=== PATIENT | male | born 1970 | race African-American/Black ===

== ENCOUNTER 2021-03-16 21:24 | Inpatient (IN) | payer OTHER ==
[~2021-03-16] VITALS: Ht 165.1 cm; Wt 106.1 kg
--- NOTE | ~2021-03-16 | EMS ---
[address] [address] EMS Patient Care Report Name: ANTHONY FORREST Room #: REG RONALD Carmichael#: [id number] Admission: 03/16/21 Attend Phys: Discharge: Date of : 70 Report #: [id number] THIS REPORT FOR: //name// Report Transmitted: 03/16/2021 21:14 EMS Care Summary [place], [place]/[facility] Incident [id number] @ 03/16/2021 20:44 Incident Location [address] [place] [address] Patient ANTHONY FORREST Male, 50 Years 1970 Patient Address [address] [place] [address] Patient History Congestive Heart Failure (CHF),Hypertension (HTN),Stroke/CVA,Hyperlipidemia,Gout, Patient Allergies No known allergies,Other drug allergy, Patient Medications Warfarin, Lisinopril, Allopurinol, Lasix, Eliquis, Chief Complaint Hurt all over, gout Disposition Transported No Lights/[place] Reason Sick Person Transported To [facility] Narrative Called for a sick. Upon arrival, P41 on the scene. Pt was BOYLE x 3 lying on his bed with a strong odor urine present. Pt said he has gout and is having a flare up that started sometime on Sunday. Pain mainly in his feet. He [facility] [address] [place] [address] EMS Patient Care Report Name: ANTHONY FORREST Room #: REG [facility].#: [id number] Admission: 03/16/21 Attend Phys: Discharge: Date of : 70 Report #: [id number] requests transport to [facility] for further eval & tx. Pt moved to the EMS cot via a Isaak-electrical maintenance engineer and loaded into the ambulance all w/o incident. Vitals obtained. Attempt IV. Vitals repeated. En route: no changes. RR to the ER. Arrived: pt taken to ER #3 and moved to their bed w/o incident. Pt care & report to ER staff. Initial Vitals @21:04P: 102,R: 16,BP: 152/102,Pain: 6/10,GCS: 15,SpO2: 96,Revised Trauma: 12, @21:00P: 109,R: 16,BP: 148/90,Pain: 6/10,GCS: 15,SpO2: 95,Revised Trauma: 12, Assessments @20:57MENTAL:Event Oriented,Person Oriented,Place Oriented,Time Oriented,SKIN:HEENT:LUNG SOUNDS:ABDOMEN:PELVIS//GI:EXTREMITIES:Right Leg: SUSAN,Left Leg: SUSAN,PULSE:NEURO: Impression Extremity Pain Procedures @20:51 ALS Assessment Response: UnchangedSucceeded @20:59 Stretcher Response: Unchanged @21:05 IV Therapy - Saline Lock cc (18 ga) Site: Antecubital-Left Response: UnchangedFailed Timeline 20:43,Call Received 20:43,Dispatch Notified 20:44,Dispatched 20:45,En Route 20:50,On Scene 20:51,At Patient 20:51,ALS Assessment,Response: UnchangedSucceeded, 20:59,Stretcher,Response: Unchanged 21:00,BP: 148/90 M,PULSE: 109,RR: 16 R,SPO2: 95 Ox,ETCO2: ,BG: ,PAIN: 6,GCS: 15, 21:04,BP: 152/102 M,PULSE: 102,RR: 16 R,SPO2: 96 Ox,ETCO2: ,BG: ,PAIN: 6,GCS: 15, 21:04,Depart Scene 21:05,IV Therapy - Saline Lock cc 18 ga Site: Antecubital-Left,Response: UnchangedFailed, 21:21,At Destination 21:35,Call Closed Disclaimer v1.1 Copyright 2020 [employer] [facility] [address] [place] [address] EMS Patient Care Report Name: ANTHONY FORREST Room #: REG Jany#: [id number] Admission: 03/16/21 Attend Phys: Discharge: Date of : 70 Report #: [id number] This EMS Care Summary contains data elements from the applicable legal record (which may be displayed differently). It is designed to provide pertinent information for the following purposes: continuity of care, clinical quality, and state data reporting. The complete legal record is available to ED staff and administrators of the receiving hospital in [employer] Patient Tracker. All data is provided "as is."
[2021-03-16 21:32] VITALS: BP 147/99
[2021-03-16 23:32] LABS: HEMATOCRIT 33.2 % (42.0-52.0); HEMOGLOBIN 10.5 gm/dL (14.0-18.0); MCH 25.4 pg (26.0-34.0); MCHC 31.6 g/dL (28.0-37.0); MCV 80.4 fL (80.0-100.0); RBC 4.13 mil/uL (4.50-6.00); RDW 17.5 % (10.5-14.5); WBC 9.3 thou/uL (4.0-11.0)
[2021-03-16 23:35] LABS: CALCIUM 8.7 mg/dL (8.5-10.1); CREATININE 1.9 mg/dL (0.7-1.3); POTASSIUM 3.9 mmol/L (3.5-5.1)
[2021-03-16 23:41] LABS: TOTAL BILIRUBIN 1.1 mg/dL (0.2-1.0); TOTAL PROTEIN 7.4 g/dL (6.4-8.2); URIC ACID* 11.9 mg/dL (3.5-7.2)
[2021-03-16 23:42] LABS: APTT 32.2 Seconds (24.5-32.8); INR 1.2
[2021-03-17 02:41] LABS: URINE BILIRUBIN NEGATIVE (Negative); URINE BLOOD NEGATIVE (Negative); URINE CLARITY CLEAR; URINE COLOR YELLOW; URINE GLUCOSE-RANDOM* NEGATIVE (Negative); URINE KETONES NEGATIVE (Negative); URINE LEUKOCYTES-REFLEX NEGATIVE (Negative); URINE NITRITE-REFLEX NEGATIVE (Negative); URINE PROTEIN (DIPSTICK) TRACE (Negative)
[2021-03-17] MEDS ORDERED: CARVEDILOL3.125 MG PO (03:44)
[2021-03-17] MEDS ORDERED: ASA81BEC PO (03:45)
[2021-03-17] MEDS ORDERED: LASIX 40 MG TAB40 MG PO (03:45)
[2021-03-17] MEDS ORDERED: ATORVASTATIN CA80 MG PO (03:45)
--- NOTE | 2021-03-17 05:32 | NUR ---
ER HAND OFF TOOL TO 2N
[2021-03-17 06:35] LABS: CALCIUM 8.8 mg/dL (8.5-10.1); POTASSIUM 3.7 mmol/L (3.5-5.1)
[2021-03-17 07:00] VITALS: BP 139/106
--- NOTE | 2021-03-17 07:08 | EKG ---
[address] [employer] [place] [address] ELECTROCARDIOGRAM REPORT Name: ANTHONY FORREST Room #: 211-P ADM IN M.R.#: [id number] Admission: 03/17/21 Attend Phys: Sina Meneses MD Discharge: Date of : 70 Report #: [id number] [facility] ED Test Date: 2021-03-17 Test Time: 00:22:09 Pat Name: ANTHONY FORREST Department: Room: 211 Gender: M Director Of Research: STEVEN : 1970 Requested By: Tatiana Mcmullen Order Number: [id number] MD: Jagdish Escudero Measurements Intervals [place] Rate: 98 P: 35 MI: 174 QRS: -13 QRSD: 124 T: 119 QT: 403 QTc: 515 Interpretive Statements Sinus rhythm Baseline wander in lead(s) V2,V3 Compared to ECG 06/25/2007 07:46:47 T-wave abnormality no longer present Poor R-wave progression no longer present Electronically Signed On 03-17-2021 7:07:57 SIGN OUT CLERK by Jagdish Escudero [email or web address] <ELECTRONICALLY SIGNED> By: Jagdish Escudero MD, [facility] 03/17/21 0707 Jagdish Escudero MD, [facility] /EPI
[2021-03-17] MEDS ORDERED: ENTRESTO 24 MG1 EACH PO (10:08)
[2021-03-17 11:06] VITALS: BP 154/107
--- NOTE | 2021-03-17 12:03 | NUR ---
ASSUMED CARE AT SHIFT CHANGE. PT A/O X 4. ADMITTED TO 2N THIS MORNING AROUND 0630.PT FROM HOME, LIVES WITH EXTENDED FAMILY PER REPORT. PT HERE FOR GOUT FLAIR IN R FOOT. INCREASED PAIN SINCE SUNDAY, INTERFERRING WITH AMBULATION X 2 DAYS. ASSESSMENTS PER CHART. VSS. CONSULTS CALLED. PT REQUESTING PAIN MEDS AT THIS TIME. WILL CONTINUE TO FOLLOW POC AND UPDATE PT.
[2021-03-17] MEDS ORDERED: SPIRONOLACTONE25 MG PO (13:59)
[2021-03-17] MEDS ORDERED: WARFARIN SODIUM1 MG PO (14:00)
[2021-03-17] MEDS ORDERED: WARFARIN SODIUM3 MG PO (14:01)
--- NOTE | 2021-03-17 14:54 | 2DMMODE ---
[facility] [address] [place] [address] 2 D/M-MODE ECHOCARDIOGRAM Name: ANTHONY FORREST Room #: 211-P ADM IN M.R.#: [id number] Admission: 03/17/21 Attend Phys: Johnathan Schafer Discharge: Date of : 70 Report #: [id number] THIS REPORT FOR: cc: NO FAMILY PHYSICIAN or PCP NO FAMILY PHYSICIAN or PCP Charles Velázquez MD ~ APPROVED REPORT Study performed: 03/17/2021 13:14:52 EXAM: Comprehensive 2D, Doppler, and color-flow Echocardiogram Patient Location: Bedside Room #: 211 Status: routine BSA: 2.14 HR: 91 bpm BP: 154/107 mmHg Rhythm: Atrial Fibrillation Other Information Study Quality: Adequate Indications ICD: Congestive Heart Failure Atrial Fibrillation Dyspnea CAD Hypertension/HDD 2D Dimensions IVSd: 13.05 (7-11mm) LVOT Diam: 21.54 (18-24mm) LVDd: 67.48 mm PWd: 11.96 (7-11mm) Ascending Ao: 31.31 (22-36mm) LVDs: 61.31 (25-40mm) Left Atrium: 51.32 (27-40mm) Aortic Root: 36.24 mm IVC: 21.00 mm Aortic Valve AoV Peak Klever.: 1.36 m/s AO Peak Gr.: 7.43 mmHg Tricuspid Valve TR Peak Klever.: 3.53 m/s [facility] [address] [place] [address] 2 D/M-MODE ECHOCARDIOGRAM Name: ANTHONY FORREST Room #: 211-P ADM IN M.R.#: [id number] Admission: 03/17/21 Attend Phys: Johnathan Ryan Discharge: Date of : 70 Report #: [id number] TR Peak Gr.: 49.92 mmHg PA Pressure: 60.00 mmHg Left Ventricle Left ventricle is dilated. Mild concentric left ventricular hypertrophy. Left ventricular ejection fraction is severely decreased. LVEF is 25-30%. This study is not technically sufficient to allow evaluation of the LV diastolic function due to atrial fibrillation. Right Ventricle Right ventricle is at the upper limits of normal. Device lead is present in the right ventricle. Atria Left atrium is dilated. Right atrium is dilated. Device lead is present in the right atrium. Aortic Valve The aortic valve is normal in structure. No aortic regurgitation is present. There is no aortic valvular stenosis. Mitral Valve The mitral valve is normal in structure. Mild mitral regurgitation. No evidence of mitral valve stenosis. Tricuspid Valve The tricuspid valve is normal in structure. There is mild tricuspid regurgitation. Estimated PAP 57 mmHg. There is moderate pulmonary hypertension. Pulmonic Valve The pulmonary valve is normal in structure. Trace pulmonic regurgitation. Great Vessels The aortic root is normal in size. IVC is dilated and collapses <50% with inspiration. Pericardium Trace pericardial effusion. <Conclusion> Left ventricle is dilated. Mild concentric left ventricular hypertrophy. Left ventricular ejection fraction is severely decreased. [facility] [address] [place] [address] 2 D/M-MODE ECHOCARDIOGRAM Name: ANTHONY FORREST Room #: 211-P ADM IN M.R.#: [id number] Admission: 03/17/21 Attend Phys: Johnathan Ryan Discharge: Date of : 70 Report #: [id number] Right ventricle is at the upper limits of normal. Device lead is present in the right ventricle. Left atrium is dilated. The aortic valve is normal in structure. Mild mitral regurgitation. There is mild tricuspid regurgitation. Estimated PAP 57 mmHg. <ELECTRONICALLY SIGNED> By: Charles Velázquez MD 03/17/21 1454 1454 1454 Charles Velázquez MD /INF
[2021-03-17 15:04] VITALS: BP 133/92
--- NOTE | 2021-03-17 16:01 | NUR ---
Case opened to follow for dc planning. Chart reviewed and discussed with the care team. Game Technician visited with the pt at bedside. He is a&ox4 and indicates that he lives with his monika Argueta, and her mother. He has four steps to enter the home and he has used a cane d/t hx of cva. He notes he is familiar with acute rehab/ snf /hh but does not have any services currently. He was at [facility] in Dec with an NM and pneumonia and declined hh services [place] due to a bed bug infestation. They have treated but can not afford the heat treatment with the pest control [employer]. So, they are now looking to move and get rid of their current furnishings. He was admitted with CHF and gout in [facility]. He was unable to bear wt with PT jace today due to pain but they will reattempt tomorrow. OT jace requested as well a should the pt need rehab/snf. He has been at [facility] after his acute stroke rehab. He is hoping with good pain control and diuresis he will be able to go home. He can not recall the HH agency he had in the past and is concerned about people coming in due to the bed bugs. He does not have a PCP either. [facility]. Will follow.
[2021-03-17 19:52] VITALS: BP 121/81
--- NOTE | 2021-03-18 02:31 | NUR ---
ASSESSED AT START OF SHIFT. PT RESTING WELL IN BED. ISOLATION MAINTAINED FOR BEDBUGS. EVENING MEDICATION GIVEN AND PT RAUL IT WELL. FALL PRECAUTION MAINTAINED DUE TO WEAKNESS. URINAL AT BEDSIDE. WILL CONT TO MONITOR.
[2021-03-18 05:14] VITALS: BP 129/84
[2021-03-18 07:15] VITALS: BP 120/84
[2021-03-18] MEDS ORDERED: WARFARIN SODIUM3 MG PO (08:20)
[2021-03-18] MEDS ORDERED: ENTRESTO 24 MG1 EACH PO (08:20)
[2021-03-18] MEDS ORDERED: SPIRONOLACTONE25 MG PO (08:20)
[2021-03-18] MEDS ORDERED: ATORVASTATIN CA80 MG PO (08:20)
[2021-03-18] MEDS ORDERED: CARVEDILOL3.125 MG PO (08:20)
[2021-03-18] MEDS ORDERED: WARFARIN SODIUM1 MG PO (08:20)
[2021-03-18] MEDS ORDERED: LASIX 40 MG TAB40 MG PO (08:20)
[2021-03-18] MEDS ORDERED: PREDNISONE 20 M20 MG PO (08:35)
[2021-03-18] MEDS ORDERED: ALLOPURINOL 10100 M3 PO (08:35)
[2021-03-18] MEDS ORDERED: ACTICIN 5% CREA60 G1 TOP (08:38)
[2021-03-18 11:11] VITALS: BP 120/84
[2021-03-18 11:37] LABS: INR 1.13; PROTIME 12.2 Seconds (10.5-12.1)
--- NOTE | 2021-03-18 11:43 | NUR ---
PT IS ALERT AND ORIENTED X4. NO COMPLAINTS OF PAIN OR DISCOMFORT. ROOM AIR AND SR WITH PVCs ON THE MONITOR. ADMINISTERED FLU VACCINE PER PT REQUEST. IV DISCONTINUED. REVIEWED DISCHARGE INSTRUCTIONS WITH PT. PT VERBALIZED UNDERSTANDING OF DISCHARGE INSTRUCTIONS AND MEDICATIONS. PT UNABLE TO GET RIDE HOME. CAB VOUCHER PROVIDED TO PT.
--- NOTE | 2021-03-18 12:09 | NUR ---
PT LEFT VIA WHEELCHAIR TO EXIT WITH STAFF AND LEAVING IN CAB TO HOME. PT TOOK BELONGINGS.
== END 2021-03-18 12:21 | disposition home or self-care (01) | DRG 553 ==
LOC: ER 21:24 → 2N 03-17 00:10 → EROBS 03-17 00:10 → 2N 03-17 06:51
PROVIDERS: Nurse Practitioner; Nurse Practitioner Family; ADMIT Hospitalist; ATTEND Hospitalist
DX: M10.9 Gout, unspecified (principal); I50.23 Acute on chronic systolic (congestive) heart failure; I42.9 Cardiomyopathy, unspecified; N17.9 Acute kidney failure, unspecified; I69.351 Hemiplegia and hemiparesis following cerebral infarction affecting right dominant side; I11.0 Hypertensive heart disease with heart failure; Z20.822 Contact with and (suspected) exposure to COVID-19; M10.071 Idiopathic gout, right ankle and foot; J45.909 Unspecified asthma, uncomplicated; S90.862A Insect bite (nonvenomous), left foot, initial encounter; S90.861A Insect bite (nonvenomous), right foot, initial encounter; E78.5 Hyperlipidemia, unspecified; I25.10 Atherosclerotic heart disease of native coronary artery without angina pectoris; I48.0 Paroxysmal atrial fibrillation; N18.9 Chronic kidney disease, unspecified; D64.9 Anemia, unspecified; I25.2 Old myocardial infarction; Z95.810 Presence of automatic (implantable) cardiac defibrillator; Z23 Encounter for immunization; Z79.82 Long term (current) use of aspirin; Z79.899 Other long term (current) drug therapy; W57.XXXA Bitten or stung by nonvenomous insect and other nonvenomous arthropods, initial encounter; Y93.89 Activity, other specified; Y92.89 Other specified places as the place of occurrence of the external cause; Y99.8 Other external cause status
CPT/HCPCS: 10081